=== PATIENT | female | born 1975 | race Caucasian/White ===

== ENCOUNTER 2017-04-17 17:15 | Emergency (ER) | payer MEDICARE ==
[~2017-04-17] VITALS: Ht 162.6 cm; Wt 100.0 kg
[~2017-04-17 17:15] MED LIST: ACETTAB3 OR; BACTRIM DS1 TAB PO; BUPROPION150 MG PO; BUSPAR5 MG PO; CIPRO500 MG OR; CYCLOBENZAPR10 MG PO; FIORICET PO; IMITREX100 M1 PO; IMITREX100 MG PO; IMITREX25 MG OR; IMITREX25 MG PO; INDERAL 40MG TA40 MG PO; KEFLEX500 MG PO; LISINOPRIL20 MG OR; LORTAB 5/3255 MG PO; METAXALONE PO; MOBIC15 MG PO; NAPROSYN500 MG PO; NUPERCAINAL1 % RE; RELPAX40 MG PO; SERTRALINE50 MG PO; SONATA10 MG PO; TOPAMAX100 MG OR; TOPAMAX100 MG PO; TOPIRAMATE100 MG PO; VERAPAMIL120 M1 OR; VERAPAMIL120 M1 PO; ZOFRAN ODT4 MG PO; ZOLOFT100 MG OR; ZOLPIDEM5 M1 PO; [UNRECOGNIZED DRUG - REMARK]
[2017-04-17] MEDS ORDERED: LISINOPRIL/HYDR1 TA1 PO (17:22)
[2017-04-17] MEDS ORDERED: AMLODIPINE5 MG PO (17:22)
[2017-04-17] MEDS ORDERED: METOPROL TAR25 MG PO (17:22)
[2017-04-17] MEDS ORDERED: FIORICET PO (18:36)
[2017-04-17 18:53] VITALS: BP 161/106
[2017-04-17] MEDS ORDERED: IMITREX100 M1 PO (19:10)
== END 2017-04-17 19:13 | disposition home or self-care (01) ==
LOC: ED 17:15
DX: G43.909 Migraine, unspecified, not intractable, without status migrainosus (principal); R11.0 Nausea

== ENCOUNTER 2017-05-19 20:12 | Emergency (ER) | payer MEDICARE ==
[~2017-05-19] VITALS: Ht 162.6 cm; Wt 95.2 kg
[~2017-05-19 20:12] MED LIST changes: +AMLODIPINE5 MG PO; +LISINOPRIL/HYDR1 TA1 PO; +METOPROL TAR25 MG PO
[2017-05-19 20:58] VITALS: BP 138/90
== END 2017-05-19 21:00 | disposition home or self-care (01) ==
LOC: ED 20:12
DX: G43.909 Migraine, unspecified, not intractable, without status migrainosus (principal); I10 Essential (primary) hypertension

== ENCOUNTER 2019-02-22 08:52 | Emergency (ER) | payer MEDICARE, MEDICAID ==
[~2019-02-22] VITALS: Ht 162.6 cm; Wt 93.2 kg
[~2019-02-22 08:52] MED LIST changes: +AMLODIPINE BESY10 MG PO; +DULOXETINE HCL20 MG PO; +LOSARTAN POTASS50 MG PO; +MELOXICAM15 MG PO; +POTASSIUM CHLO10 MEQ PO
[2019-02-22 09:21] LABS: HEMOGLOBIN 11.9 g/dl (12.0-16.0); IMMATURE GRANULOCYTES 0.3 % (0.0-5.0); MEAN CELL VOLUME 81.9 fL CALC (80.0-100.0); MEAN CORPUSCULAR HGB 26.3 pG CALC (26.0-32.0); MEAN CORPUSCULAR HGB CONC 32.2 g/L CALC (32.0-36.0); NEUT# 7.79 thou/uL (2.00-7.15); RED BLOOD COUNT 4.52 mill/uL (4.20-5.60); RED CELL DISTRI WIDTH 14.9 % (11.5-15.5)
[2019-02-22 09:42] LABS: ALBUMIN 4.1 g/dL (3.2-5.0); ALKALINE PHOSPHATASE 99 u/l (38-126); BILIRUBIN, TOTAL 0.3 mg/dL (0.0-1.4); BUN 10 mg/dL (7-17); BUN/CREATININE RATIO 14 (12-20 (CALC)); CHLORIDE 101 mmol/l (95-108); CREATININE 0.7 mg/dL (0.5-1.0); GFR > 60 ML/MIN (>=60 (CALC)); GFR FOR AFR.AMER. > 60 ML/MIN (>=60 (CALC)); LIPASE 56 u/l (23-300); POTASSIUM 3.5 mmol/l (3.5-5.1); SGOT/AST 18 u/l (14-36); SODIUM 138 mmol/l (137-146); TOTAL PROTEIN 7.4 g/dL (6.3-8.2)
[2019-02-22 09:47] LABS: ANION GAP 15 (6-22 (CALC)); CARBON DIOXIDE 26 mmol/l (22-30)
[2019-02-22 10:33] LABS: URINE BILIRUBIN - DIPSTICK NEGATIVE (NEGATIVE); URINE BLOOD DIPSTICK NEGATIVE (NEGATIVE); URINE COLOR YELLOW; URINE GLUCOSE - DIPSTICK NEGATIVE (NEGATIVE); URINE KETONE NEGATIVE (NEGATIVE); URINE LEUK ESTERASE NEGATIVE (NEGATIVE); URINE NITRITE - DIPSTICK NEGATIVE (Negative); URINE PROTEIN - DIPSTICK NEGATIVE (NEG-TRACE); URINE SPECIFIC GRAVITY <=1.005; URINE UROBILINOGEN - DIPSTICK 0.2 E.U./dL (0.2)
[2019-02-22] MEDS ORDERED: CIPROFLOXACIN500 M1 PO (10:46)
[2019-02-22] MEDS ORDERED: METRONIDAZOL500 MG PO (10:46)
[2019-02-22] MEDS ORDERED: ONDANSETRON4 MG PO (10:46)
[2019-02-22 11:09] VITALS: BP 130/80
== END 2019-02-22 11:25 | disposition home or self-care (01) ==
LOC: ED 08:52
PROVIDERS: Family Medicine
DX: K57.32 Diverticulitis of large intestine without perforation or abscess without bleeding (principal); I10 Essential (primary) hypertension
CPT/HCPCS: Q9967

== ENCOUNTER 2019-03-09 07:00 | Inpatient (IN) | payer MEDICARE, MEDICAID ==
[~2019-03-09] VITALS: Ht 162.6 cm; Wt 91.0 kg
[2019-03-09] VITALS (7 sets, daily range): BP systolic 106–123; BP diastolic 58–62
[~2019-03-09 07:00] MED LIST changes: +CIPROFLOXACIN500 M1 PO; -IMITREX25 MG PO; +METRONIDAZOL500 MG PO; +ONDANSETRON4 MG PO
[2019-03-10 00:30] VITALS: BP 104/70
[2019-03-10 03:46] VITALS: BP 107/73
[2019-03-10 11:07] VITALS: BP 112/62
[2019-03-10 16:07] VITALS: BP 119/76
[2019-03-10 18:50] VITALS: BP 135/89
[2019-03-10 23:40] VITALS: BP 116/73
[2019-03-11 03:41] VITALS: BP 109/72
[2019-03-11 08:43] VITALS: BP 129/92
[2019-03-11 11:19] VITALS: BP 138/79
[2019-03-11 15:07] VITALS: BP 93/56
[2019-03-11 15:25] VITALS: BP 102/79
[2019-03-11 18:40] VITALS: BP 122/80
[2019-03-12 04:15] VITALS: BP 97/55
[2019-03-12 06:10] LABS: ANION GAP 10 (6-22 (CALC)); BUN 9 mg/dL (7-17); BUN/CREATININE RATIO 14 (12-20 (CALC)); CARBON DIOXIDE 30 mmol/l (22-30); CHLORIDE 100 mmol/l (95-108); CREATININE 0.6 mg/dL (0.5-1.0); GFR > 60 ML/MIN (>=60 (CALC)); GFR FOR AFR.AMER. > 60 ML/MIN (>=60 (CALC)); POTASSIUM 3.3 mmol/l (3.5-5.1); SODIUM 136 mmol/l (137-146)
[2019-03-12 06:18] LABS: HEMATOCRIT 31.5 % (37.0-47.0); IMMATURE GRANULOCYTES 0.4 % (0.0-5.0); MEAN CELL VOLUME 83.8 fL CALC (80.0-100.0); MEAN CORPUSCULAR HGB 26.1 pG CALC (26.0-32.0); MEAN CORPUSCULAR HGB CONC 31.1 g/L CALC (32.0-36.0); NEUT# 3.11 thou/uL (2.00-7.15); RED BLOOD COUNT 3.76 mill/uL (4.20-5.60); RED CELL DISTRI WIDTH 14.9 % (11.5-15.5)
[2019-03-12 06:20] LABS: HEMOGLOBIN 9.8 g/dl (12.0-16.0)
[2019-03-12 09:12] VITALS: BP 127/82
[2019-03-12] MEDS ORDERED: PERCOCET 5/325M1 TAB PO (10:54)
== END 2019-03-12 13:06 | disposition home or self-care (01) | DRG 331 ==
LOC: ORM 07:00 → MS2 10:00
PROVIDERS: ADMIT Surgery; ATTEND Surgery
PROC: 0DBN0ZZ Excision of Sigmoid Colon, Open Approach (ICD-10-PCS; principal; 2019-03-09)
PROC: 3E02340 Introduction of Influenza Vaccine into Muscle, Percutaneous Approach (ICD-10-PCS; 2019-03-10)
DX: K57.30 Diverticulosis of large intestine without perforation or abscess without bleeding (principal); I10 Essential (primary) hypertension; Z23 Encounter for immunization
CPT/HCPCS: J0131; J1100

== ENCOUNTER 2019-03-19 10:16 | Emergency (ER) | payer MEDICARE, MEDICAID ==
[~2019-03-19] VITALS: Ht 162.6 cm; Wt 93.0 kg
[~2019-03-19 10:16] MED LIST changes: +PERCOCET 5/325M1 TAB PO
[2019-03-19] MEDS ORDERED: PERCOCET 5/325M1 TAB PO (10:51)
[2019-03-19 11:09] VITALS: BP 115/67
== END 2019-03-19 11:09 | disposition home or self-care (01) ==
LOC: ED 10:16
DX: G89.18 Other acute postprocedural pain (principal); I10 Essential (primary) hypertension; Z90.49 Acquired absence of other specified parts of digestive tract

== ENCOUNTER 2019-04-30 | Emergency (ER) | payer MEDICARE, MEDICAID ==
[2019-04-30 16:26] LABS: URINE BILIRUBIN - DIPSTICK NEGATIVE (NEGATIVE); URINE BLOOD DIPSTICK NEGATIVE (NEGATIVE); URINE COLOR YELLOW; URINE GLUCOSE - DIPSTICK NEGATIVE (NEGATIVE); URINE KETONE NEGATIVE (NEGATIVE); URINE LEUK ESTERASE NEGATIVE (NEGATIVE); URINE NITRITE - DIPSTICK NEGATIVE (Negative); URINE PROTEIN - DIPSTICK NEGATIVE (NEG-TRACE); URINE SPECIFIC GRAVITY 1.015; URINE UROBILINOGEN - DIPSTICK 0.2 E.U./dL (0.2)
[2019-04-30 16:29] LABS: HEMOGLOBIN 11.7 g/dl (12.0-16.0); IMMATURE GRANULOCYTES 0.5 % (0.0-5.0); MEAN CORPUSCULAR HGB 25.6 pG CALC (26.0-32.0); MEAN CORPUSCULAR HGB CONC 31.6 g/L CALC (32.0-36.0); NEUT# 4.35 thou/uL (2.00-7.15); RED BLOOD COUNT 4.57 mill/uL (4.20-5.60); RED CELL DISTRI WIDTH 14.7 % (11.5-15.5)
[2019-04-30 16:46] LABS: ALBUMIN 4.3 g/dL (3.2-5.0); ALKALINE PHOSPHATASE 107 u/l (38-126); ANION GAP 15 (6-22 (CALC)); BILIRUBIN, TOTAL 0.3 mg/dL (0.0-1.4); BUN 14 mg/dL (7-17); BUN/CREATININE RATIO 19 (12-20 (CALC)); CHLORIDE 106 mmol/l (95-108); CREATININE 0.8 mg/dL (0.5-1.0); GFR > 60 ML/MIN (>=60 (CALC)); GFR FOR AFR.AMER. > 60 ML/MIN (>=60 (CALC)); LIPASE 58 u/l (23-300); POTASSIUM 3.5 mmol/l (3.5-5.1); SGOT/AST 21 u/l (14-36); SODIUM 137 mmol/l (137-146); TOTAL PROTEIN 7.8 g/dL (6.3-8.2)
[2019-04-30 16:49] LABS: CARBON DIOXIDE 20 mmol/l (22-30)
== END 2019-04-30 18:31 | disposition home or self-care (01) ==
PROVIDERS: Family Medicine
DX: R10.12 Left upper quadrant pain (principal); I10 Essential (primary) hypertension
CPT/HCPCS: Q9967

== ENCOUNTER 2019-06-03 | Emergency (ER) | payer MEDICARE, MEDICAID ==
[2019-06-03 17:22] LABS: HEMATOCRIT 36.2 % (37.0-47.0); HEMOGLOBIN 11.4 g/dl (12.0-16.0); IMMATURE GRANULOCYTES 0.4 % (0.0-5.0); MEAN CELL VOLUME 78.4 fL CALC (80.0-100.0); MEAN CORPUSCULAR HGB 24.7 pG CALC (26.0-32.0); MEAN CORPUSCULAR HGB CONC 31.5 g/L CALC (32.0-36.0); NEUT# 4.45 thou/uL (2.00-7.15); RED BLOOD COUNT 4.62 mill/uL (4.20-5.60); RED CELL DISTRI WIDTH 14.8 % (11.5-15.5)
[2019-06-03 17:39] LABS: ANION GAP 15 (6-22 (CALC)); BUN 18 mg/dL (7-17); BUN/CREATININE RATIO 23 (12-20 (CALC)); CARBON DIOXIDE 24 mmol/l (22-30); CHLORIDE 99 mmol/l (95-108); CREATININE 0.8 mg/dL (0.5-1.0); GFR > 60 ML/MIN (>=60 (CALC)); GFR FOR AFR.AMER. > 60 ML/MIN (>=60 (CALC)); POTASSIUM 3.3 mmol/l (3.5-5.1); SODIUM 135 mmol/l (137-146)
== END 2019-06-03 19:00 | disposition home or self-care (01) ==
PROVIDERS: Family Medicine
DX: G43.909 Migraine, unspecified, not intractable, without status migrainosus (principal); I10 Essential (primary) hypertension